=== PATIENT | male | born 1960 | race Caucasian/White ===

== ENCOUNTER 2016-12-12 21:10 | Inpatient (IN) | payer OTHER ==
[2016-12-12] VITALS (14 sets, daily range): O2SAT 91–96
[~2016-12-12] VITALS: Ht 180.3 cm; Wt 90.7 kg
[~2016-12-12 21:10] MED LIST: AMOXICILLIN 8751 TAB PO; NORCO 325 MG-51 TAB PO
[2016-12-12 21:32] LABS: BASO # 0.1 (0.0-0.2); BASO % 0.9 % (0.0-2.0); EOS # 0.4 (0.0-0.7); EOS % 3.3 % (0-4.0); GRAN # 6.3 (1.4-6.5); GRAN % 48.3 % (42.2-75.2); HEMATOCRIT 44.3 % (42.0-52.0); HEMOGLOBIN 14.6 g/dl (13.5-18.0); LYMPH % 37.8 % (20.0-51.0); MEAN CELL VOLUME 85 fl (80.0-100.0); MEAN CORPUSCULAR HEMOGLOBIN 28 pg (27.0-31.0); MEAN CORPUSCULAR HGB CONC 33 g/dl (33.0-37.0); MEAN PLATELET VOLUME 9.5 fl (7.4-10.4); MONO # 1.2 (0.1-0.6); MONO % 9.4 % (1.7-9.3); PLATELET COUNT 425 K/mm3 (130-400); RED BLOOD COUNT 5.19 M/mm3 (4.20-5.60); REDCELL DISTRIBUTION WIDTH-CV 12.1 % (11.5-14.5); WHITE BLOOD COUNT 13.1 K/mm3 (4.8-10.8)
[2016-12-12 21:36] LABS: PROTHROMBIN TIME 11.1 SECONDS (9.7-12.8)
[2016-12-12 22:05] LABS: ADJUSTED CALCIUM 9.2 mg/dL (8.4-10.2); ALANINE AMINOTRANSFERASE 40 U/L (21-72); ALBUMIN 4.3 gm/dL (3.5-5.0); ALKALINE PHOSPHATASE 61 U/L (50-136); ANION GAP 14 mmol/L (7-16); BILIRUBIN,TOTAL 0.6 mg/dL (0.0-1.0); BLOOD UREA NITROGEN 18 mg/dL (9-20); CALCIUM 9.4 mg/dL (8.4-10.2); CARBON DIOXIDE 24 mmol/L (22-30); CHLORIDE 103 mmol/L (98-107); CREATININE, serum 0.95 mg/dL (0.66-1.25); GLUCOSE 119 mg/dL (74-106); POTASSIUM 3.3 mmol/L (3.4-5.0); SODIUM 142 mmol/L (137-145); TOTAL PROTEIN 7.7 gm/dL (6.4-8.2)
[2016-12-12 22:35] LABS: TROPONIN-I < 0.012 ng/mL (0.000-0.034)
[2016-12-13] VITALS (603 sets, daily range): BP systolic 115–131; BP diastolic 70–78; PULSE 88–109; TEMP 97.2–99.3; O2SAT 82–97
[2016-12-13 09:26] LABS: BASO # 0.1 (0.0-0.2); BASO % 0.4 % (0.0-2.0); EOS % 0.1 % (0-4.0); GRAN # 13.8 (1.4-6.5); GRAN % 85.4 % (42.2-75.2); HEMATOCRIT 41.6 % (42.0-52.0); HEMOGLOBIN 13.5 g/dl (13.5-18.0); LYMPH # 1.2 (1.2-3.4); LYMPH % 7.2 % (20.0-51.0); MEAN CELL VOLUME 87 fl (80.0-100.0); MEAN CORPUSCULAR HEMOGLOBIN 28 pg (27.0-31.0); MEAN CORPUSCULAR HGB CONC 33 g/dl (33.0-37.0); MEAN PLATELET VOLUME 9.9 fl (7.4-10.4); MONO % 6.4 % (1.7-9.3); RED BLOOD COUNT 4.77 M/mm3 (4.20-5.60); REDCELL DISTRIBUTION WIDTH-CV 12.6 % (11.5-14.5); WHITE BLOOD COUNT 16.1 K/mm3 (4.8-10.8)
[2016-12-13 09:29] LABS: PLATELET COUNT 293 K/mm3 (130-400)
[2016-12-13 09:53] LABS: CALCIUM 8.7 mg/dL (8.4-10.2); CREATININE, serum 0.88 mg/dL (0.66-1.25); POTASSIUM 4.2 mmol/L (3.4-5.0)
[2016-12-14 04:27] VITALS: BP 134/67; PULSE 98; TEMP 100.6
[2016-12-14 08:24] VITALS: BP 126/73; PULSE 99; TEMP 99.3
[2016-12-14 08:24] LABS: BASO # 0.1 (0.0-0.2); BASO % 0.5 % (0.0-2.0); EOS # 0.2 (0.0-0.7); EOS % 1.6 % (0-4.0); GRAN # 10.9 (1.4-6.5); GRAN % 80.5 % (42.2-75.2); HEMATOCRIT 40.2 % (42.0-52.0); LYMPH # 1.3 (1.2-3.4); LYMPH % 9.4 % (20.0-51.0); MEAN CELL VOLUME 87 fl (80.0-100.0); MEAN CORPUSCULAR HEMOGLOBIN 28 pg (27.0-31.0); MEAN CORPUSCULAR HGB CONC 32 g/dl (33.0-37.0); MONO % 7.6 % (1.7-9.3); PLATELET COUNT 292 K/mm3 (130-400); RED BLOOD COUNT 4.62 M/mm3 (4.20-5.60); REDCELL DISTRIBUTION WIDTH-CV 12.7 % (11.5-14.5); WHITE BLOOD COUNT 13.5 K/mm3 (4.8-10.8)
[2016-12-14 11:36] VITALS: BP 126/69; PULSE 101; TEMP 98.5
[2016-12-14 13:57] LABS: PH 5 (5-8); SQUAMOUS EPITHELIAL None Seen /hpf; URINE APPEARANCE Hazy; URINE BACTERIA Rare /hpf; URINE BILIRUBIN Negative (NEGATIVE); URINE BLOOD Negative (NEGATIVE); URINE COLOR Yellow; URINE GLUCOSE Negative (NEGATIVE); URINE KETONE Negative (NEGATIVE); URINE RBC 0-2 /hpf
[2016-12-14 17:26] VITALS: BP 121/69; PULSE 99; TEMP 97.8
[2016-12-14 17:46] LABS: INFLUENZA B NEGATIVE
[2016-12-14 20:01] VITALS: BP 141/65; PULSE 91; TEMP 98.7
[2016-12-14 22:48] VITALS: BP 125/70; PULSE 94; TEMP 99.6
[2016-12-15] VITALS (7 sets, daily range): BP systolic 120–149; BP diastolic 62–73; PULSE 85–105; TEMP 97.4–98.7
[2016-12-15 08:34] LABS: BASO # 0.1 (0.0-0.2); BASO % 0.6 % (0.0-2.0); EOS # 0.3 (0.0-0.7); EOS % 2.6 % (0-4.0); GRAN % 79.2 % (42.2-75.2); HEMATOCRIT 38.6 % (42.0-52.0); HEMOGLOBIN 12.8 g/dl (13.5-18.0); LYMPH # 1.1 (1.2-3.4); LYMPH % 8.8 % (20.0-51.0); MEAN CELL VOLUME 85 fl (80.0-100.0); MEAN CORPUSCULAR HEMOGLOBIN 28 pg (27.0-31.0); MEAN CORPUSCULAR HGB CONC 33 g/dl (33.0-37.0); MEAN PLATELET VOLUME 10.2 fl (7.4-10.4); MONO # 1.1 (0.1-0.6); MONO % 8.3 % (1.7-9.3); PLATELET COUNT 294 K/mm3 (130-400); RED BLOOD COUNT 4.52 M/mm3 (4.20-5.60); REDCELL DISTRIBUTION WIDTH-CV 12.8 % (11.5-14.5); WHITE BLOOD COUNT 12.6 K/mm3 (4.8-10.8)
[2016-12-15 08:51] LABS: CALCIUM 8.5 mg/dL (8.4-10.2); CREATININE, serum 0.78 mg/dL (0.66-1.25); POTASSIUM 3.7 mmol/L (3.4-5.0)
[2016-12-15] MEDS ORDERED: PROAIR HFA0.09 MG/AC IH (11:54)
[2016-12-15] MEDS ORDERED: NORCO 325 MG-51 TAB PO (11:55)
[2016-12-15] MEDS ORDERED: PREDNISONE20 MG PO (11:55)
[2016-12-15 15:50] LABS: INR 1.3 (0.8-3.0); PROTHROMBIN TIME 14.9 SECONDS (9.7-12.8)
[2016-12-15 16:50] LABS: GLUCOSE,PLEURAL FLUID 125 mg/dL
[2016-12-15 16:59] LABS: PLEURAL FLUID - PMN 65.2 % (0-25)
[2016-12-15 19:29] LABS: PLEURAL FLUID RIGHT SIDE; PLEURAL FLUID APPEARANCE HAZY; PLEURAL FLUID COLOR AMBER
[2016-12-16 04:38] VITALS: BP 118/69; PULSE 82; TEMP 99.9
[2016-12-16 07:39] VITALS: BP 123/71; PULSE 92; TEMP 99.7
[2016-12-16 11:05] VITALS: BP 130/72; PULSE 85; TEMP 98.5
[2016-12-16] MEDS ORDERED: CLEOCIN HCL300 MG PO (12:22)
== END 2016-12-16 15:00 | disposition home or self-care (01) | DRG 194 ==
LOC: COL.ER 21:10 → ICU 22:18 → MEDICAL 12-13 17:39
PROVIDERS: Family Medicine; Internal Medicine; Nurse Practitioner Family
PROC: 0W993ZZ Drainage of Right Pleural Cavity, Percutaneous Approach (ICD-10-PCS; principal; 2016-12-15)
DX: J18.9 Pneumonia, unspecified organism (principal); J91.8 Pleural effusion in other conditions classified elsewhere; M94.0 Chondrocostal junction syndrome [Tietze]; I10 Essential (primary) hypertension; Z87.891 Personal history of nicotine dependence
CPT/HCPCS: 99232-AI; 99239; A9284; J0456; J0696; J1170; J1650; J7030; J7050; J7512; Q9967

== ENCOUNTER 2016-12-24 10:45 | Emergency (ER) | payer OTHER ==
[~2016-12-24] VITALS: Ht 182.9 cm; Wt 89.5 kg
[~2016-12-24 10:45] MED LIST changes: +CLEOCIN HCL300 MG PO; +PREDNISONE20 MG PO; +PROAIR HFA0.09 MG/AC IH
[2016-12-24 11:35] LABS: BASO # 0.1 (0.0-0.2); BASO % 0.7 % (0.0-2.0); EOS # 0.1 (0.0-0.7); EOS % 1.1 % (0-4.0); GRAN # 6.4 (1.4-6.5); GRAN % 79.6 % (42.2-75.2); HEMATOCRIT 40.6 % (42.0-52.0); HEMOGLOBIN 13.1 g/dl (13.5-18.0); LYMPH # 0.5 (1.2-3.4); LYMPH % 6.6 % (20.0-51.0); MEAN CELL VOLUME 86 fl (80.0-100.0); MEAN CORPUSCULAR HEMOGLOBIN 28 pg (27.0-31.0); MEAN CORPUSCULAR HGB CONC 32 g/dl (33.0-37.0); MEAN PLATELET VOLUME 9.1 fl (7.4-10.4); MONO # 0.9 (0.1-0.6); MONO % 11.6 % (1.7-9.3); PLATELET COUNT 423 K/mm3 (130-400); RED BLOOD COUNT 4.71 M/mm3 (4.20-5.60); REDCELL DISTRIBUTION WIDTH-CV 12.3 % (11.5-14.5)
[2016-12-24 11:51] LABS: INFLUENZA B NEGATIVE
[2016-12-24 12:42] LABS: ADJUSTED CALCIUM 9.4 mg/dL (8.4-10.2); ALBUMIN 3.8 gm/dL (3.5-5.0); BILIRUBIN,TOTAL 0.7 mg/dL (0.0-1.0); CALCIUM 9.2 mg/dL (8.4-10.2); CREATININE, serum 0.96 mg/dL (0.66-1.25); POTASSIUM 4.2 mmol/L (3.4-5.0); TOTAL PROTEIN 7.8 gm/dL (6.4-8.2)
[2016-12-24] MEDS ORDERED: PROAIR HFA0.09 MG/AC IH (12:59)
[2016-12-24 13:22] VITALS: BP 108/57; PULSE 85; TEMP 98.8
== END 2016-12-24 13:22 | disposition home or self-care (01) ==
LOC: COL.ER 10:45
PROVIDERS: Emergency Medicine; Physician Assistant
DX: J18.9 Pneumonia, unspecified organism (principal); J91.8 Pleural effusion in other conditions classified elsewhere; T48.6X6A Underdosing of antiasthmatics, initial encounter; Z91.138 Patient's unintentional underdosing of medication regimen for other reason; Y92.009 Unspecified place in unspecified non-institutional (private) residence as the place of occurrence of the external cause; Z87.891 Personal history of nicotine dependence
CPT/HCPCS: J7040

== ENCOUNTER 2019-07-02 16:49 | Emergency (ER) | payer MEDICAID ==
[~2019-07-02] VITALS: Ht 180.3 cm; Wt 100.0 kg
[2019-07-02 16:56] VITALS: TEMP 98.6
[2019-07-02 18:50] LABS: BASO # 0.1 (0.0-0.2); BASO % 0.7 % (0.0-2.0); EOS # 0.2 (0.0-0.7); EOS % 1.8 % (0-4.0); GRAN # 7.8 (1.4-6.5); GRAN % 75.6 % (42.2-75.2); HEMATOCRIT 42.3 % (42.0-52.0); HEMOGLOBIN 14.2 g/dl (13.5-18.0); LYMPH # 1.5 (1.2-3.4); LYMPH % 14.5 % (20.0-51.0); MEAN CELL VOLUME 86 fl (80.0-100.0); MEAN CORPUSCULAR HEMOGLOBIN 29 pg (27.0-31.0); MEAN CORPUSCULAR HGB CONC 34 g/dl (33.0-37.0); MEAN PLATELET VOLUME 9.9 fl (7.4-10.4); MONO # 0.7 (0.1-0.6); MONO % 7.1 % (1.7-9.3); PLATELET COUNT 247 K/mm3 (130-400); RED BLOOD COUNT 4.91 M/mm3 (4.20-5.60); REDCELL DISTRIBUTION WIDTH-CV 12.2 % (11.5-14.5)
[2019-07-02 18:59] LABS: CALCIUM 9.1 mg/dL (8.4-10.2); CREATININE, serum 0.85 (0.66-1.25)
[2019-07-02] MEDS ORDERED: NORCO 325 MG-51 TAB PO (20:25)
[2019-07-02] MEDS ORDERED: CLEOCIN HCL300 MG PO (20:25)
[2019-07-02 20:45] VITALS: BP 140/70; PULSE 75
== END 2019-07-02 21:20 | disposition home or self-care (01) ==
LOC: COL.ER 16:49
PROVIDERS: Physician Assistant
DX: L02.01 Cutaneous abscess of face (principal); Z87.891 Personal history of nicotine dependence
CPT/HCPCS: Q9967

== ENCOUNTER 2019-09-21 10:48 | Day surgery (SDC) | payer MEDICAID ==
[~2019-09-21] VITALS: Ht 182.9 cm; Wt 93.2 kg
[2019-09-21 11:08] VITALS: BP 135/79; PULSE 81; TEMP 98.1
[2019-09-21 12:50] VITALS: BP 115/72; PULSE 63; TEMP 98.4
--- NOTE | 2019-09-21 12:50 | NUR ---
to bay 2 via cart from endo room, pt walked to chair, in room, call light in reach, has juice and muffin, no c/o
[2019-09-21 13:05] VITALS: BP 121/77; PULSE 64
--- NOTE | 2019-09-21 13:10 | NUR ---
Dr kumar see pt and . iv d'cd intact.
[2019-09-21 13:20] VITALS: BP 107/74; PULSE 61
--- NOTE | 2019-09-21 13:20 | NUR ---
reviewed discharge papers with pt and . Instructed on activity, results of biopsy and precautioins with verbal understanding. pt up in room dressed, discharged via w/c to car with
== END 2019-09-21 13:25 | disposition home or self-care (01) ==
LOC: SDCO 10:48
DX: Z12.11 Encounter for screening for malignant neoplasm of colon (principal); D12.5 Benign neoplasm of sigmoid colon; K62.1 Rectal polyp; E78.00 Pure hypercholesterolemia, unspecified
CPT/HCPCS: J2250; J2405; J3010; J7030

== ENCOUNTER 2022-04-10 16:40 | Inpatient (IN) | payer OTHER ==
[~2022-04-10] VITALS: Ht 152.4 cm; Wt 95.0 kg
[2022-04-10] MEDS ORDERED: DOXYCYCLINE 10100 MG PO (17:06)
[2022-04-10] MEDS ORDERED: SINGULAIR 110 MG/TAB PO (17:07)
[2022-04-10] MEDS ORDERED: PROAIR HFA0.09 MG/AC IH (17:08)
[2022-04-10 17:33] LABS: BASO # 0.1 K/mm3 (0.0-0.2); BASO % 0.7 % (0.0-2.0); EOS # 0.4 K/mm3 (0.0-0.7); EOS % 3.6 % (0.0-4.0); GRAN # 8.7 K/mm3 (1.4-6.5); GRAN % 71.9 % (42.2-75.2); HEMATOCRIT 48.8 % (42.0-52.0); HEMOGLOBIN 16.5 g/dl (13.5-18.0); LYMPH % 16.2 % (20.0-51.0); MEAN CELL VOLUME 86 fl (80.0-100.0); MEAN CORPUSCULAR HEMOGLOBIN 29 pg (27-31); MEAN CORPUSCULAR HGB CONC 34 g/dl (33.0-37.0); MEAN PLATELET VOLUME 9.9 fl (7.4-10.4); MONO # 0.9 K/mm3 (0.1-0.6); MONO % 7.2 % (1.7-9.3); PLATELET COUNT 312 K/mm3 (130-400); RED BLOOD COUNT 5.67 M/mm3 (4.20-5.60); REDCELL DISTRIBUTION WIDTH-CV 12.6 % (11.5-14.5)
[2022-04-10 17:50] LABS: ALANINE AMINOTRANSFERASE 31 U/L (0-55); ALBUMIN 4.2 gm/dL (3.4-4.8); ALKALINE PHOSPHATASE 71 U/L (40-150); ANION GAP 14 mmol/L (7-16); AST,SGOT 21 U/L (5-34); BILIRUBIN,TOTAL 0.7 mg/dL (0.2-1.2); BLOOD UREA NITROGEN 12 mg/dL (8-26); CALCIUM 9.6 mg/dL (8.4-10.2); CARBON DIOXIDE 22 mmol/L (23-31); CHLORIDE 105 mmol/L (98-107); CREATININE, serum 0.96 mg/dL (0.72-1.25); GLUCOSE 90 mg/dL (70-99); POTASSIUM 4.3 mmol/L (3.5-4.5); SODIUM 141 mmol/L (136-145)
[2022-04-10 17:57] LABS: TROPONIN-I < 0.010 ng/mL (0.00-0.033)
[2022-04-10 21:09] VITALS: BP 126/60; PULSE 104; TEMP 98
--- NOTE | 2022-04-10 21:10 | NUR ---
PT ADMITTED TO ROOM 342 FROM ER PER W/C. A&O X4. NO RESP DISTRESS AT THIS TIME. TELE IN PLACE. NOTIFIED DR STEINER OF CONSULT. CALL LIGHT IN REACH. EATING A SANDWICH TRAY AT THIS TIME.
[2022-04-10 23:33] VITALS: BP 134/69; PULSE 99; TEMP 97.6
--- NOTE | 2022-04-11 01:59 | NUR ---
PT REPORTS COUGHING QUITE A BIT. NO RESP DISTRESS. NOTIFIED RT FOR RT TX.
--- NOTE | 2022-04-11 02:28 | NUR ---
PT SLEEPING NOW. NO RESP DISTRESS.
[2022-04-11 03:28] VITALS: BP 128/51; PULSE 93; TEMP 97.7
--- NOTE | 2022-04-11 04:00 | NUR ---
PT CONTINUES SLEEPING.
[2022-04-11 07:46] VITALS: BP 143/67; PULSE 114; TEMP 97.7
[2022-04-11 11:52] VITALS: BP 143/63; PULSE 110; TEMP 97.9
--- NOTE | 2022-04-11 13:14 | NUR ---
Pt lives at home with his ,Chetna @ [phone]. Pt is independent on all ADLS and does not use any DME. PT PCP is Brian Richards and gets medications from [facility] and has no trouble obtaining medications. Pt not interested in DPOA-HC paperwork. No other needs stated at this time. SW to await further recommendations. DC: Home.
[2022-04-11 15:20] VITALS: BP 135/60; PULSE 116; TEMP 98.8
--- NOTE | 2022-04-11 19:48 | NUR ---
ASSESSMENT COMPLETE. PT. SITTING IN CHAIR TALKING ON THE PHONE. A&O. ANTIBIOTICS INFUSING TO RIGHT FOREARM. NO COMPLAINTS OF PAIN. PT. IS NOT WEARING OXYGEN. CALL LIGHT IN REACH. NO FURHTER NEEDS AT THIS TIME.
[2022-04-11 20:21] VITALS: BP 137/63; PULSE 117; TEMP 97.7
--- NOTE | 2022-04-12 00:22 | NUR ---
AID FOUND PT. O2 TO BE AT 87% WITHOUT OXYGEN. O2 WAS APPLIED AT 3L/MIN AND HIS STAT INCREASED TO 91%
[2022-04-12 00:51] VITALS: BP 117/63; PULSE 107; TEMP 97.8
[2022-04-12 04:23] VITALS: BP 125/69; PULSE 100; TEMP 97.7
[2022-04-12 06:33] LABS: HEMATOCRIT 40.5 % (42.0-52.0); MEAN CELL VOLUME 88 fl (80.0-100.0); MEAN CORPUSCULAR HEMOGLOBIN 29 pg (27-31); MEAN CORPUSCULAR HGB CONC 33 g/dl (33.0-37.0); MEAN PLATELET VOLUME 10.7 fl (7.4-10.4); PLATELET COUNT 270 K/mm3 (130-400); RED BLOOD COUNT 4.58 M/mm3 (4.20-5.60); REDCELL DISTRIBUTION WIDTH-CV 13.1 % (11.5-14.5)
[2022-04-12 06:50] LABS: CALCIUM 9.5 mg/dL (8.4-10.2); CREATININE, serum 0.93 mg/dL (0.72-1.25); POTASSIUM 4.3 mmol/L (3.5-4.5)
[2022-04-12 06:55] LABS: HEMOGLOBIN 13.4 g/dl (13.5-18.0)
[2022-04-12 08:00] VITALS: BP 136/72; PULSE 109; TEMP 97.6
[2022-04-12 09:00] LABS: BAND 4 % (0-10); LYMPHOCYTE 5 % (20.0-51.0); NEUTROPHILS 87 % (42.0-75.2)
[2022-04-12 09:06] LABS: PLATELET ESTIMATE NORMAL (NORMAL)
--- NOTE | 2022-04-12 10:07 | NUR ---
Initial visit; Patient thanked [employer] Microbiology Supervisor for looking in on him and offering God's blessings.
[2022-04-12] MEDS ORDERED: PREDNISONE20 MG PO (11:17)
[2022-04-12] MEDS ORDERED: DULERA1 ARO IH (11:19)
[2022-04-12 11:56] VITALS: BP 131/77; PULSE 100; TEMP 97.8
--- NOTE | 2022-04-12 12:39 | NUR ---
DISCHARGE INSTRUCTIONS PROVIDED. FOLLOW UP APPOINTMENTS DISCUSSED. IV DC'D. PATIENT DENIES ANY QUESTIONS OR CONCERNS. PATIENT ESCORTED OUT WITH AIDE AND .
--- NOTE | 2022-04-12 12:39 | NUR ---
PATIENT ALERT AND ORIENTED X3. AMBULATING HALLS. PATIENT DENIES PAIN. ASSESSMENT PERFORMED. VSS. AM MEDS ADMINISTERED. CALL LIGHT WITHIN REACH.
== END 2022-04-12 12:35 | disposition home or self-care (01) | DRG 189 ==
LOC: COL.ER 16:40 → SURG 19:10
PROVIDERS: Physician Assistant; ADMIT Student in an Organized Health Care Education/Training Program
PROC: 5A0935A Assistance with Respiratory Ventilation, Less than 24 Consecutive Hours, High Flow/Velocity Cannula (ICD-10-PCS; principal; 2022-04-11)
DX: J96.01 Acute respiratory failure with hypoxia (principal); J21.9 Acute bronchiolitis, unspecified; J45.901 Unspecified asthma with (acute) exacerbation; Z20.822 Contact with and (suspected) exposure to COVID-19; F17.210 Nicotine dependence, cigarettes, uncomplicated; J32.8 Other chronic sinusitis; D18.09 Hemangioma of other sites; R03.0 Elevated blood-pressure reading, without diagnosis of hypertension; R05.3 Chronic cough; Z87.01 Personal history of pneumonia (recurrent); Z90.49 Acquired absence of other specified parts of digestive tract; Z91.048 Other nonmedicinal substance allergy status; Z72.89 Other problems related to lifestyle
CPT/HCPCS: 99223-AI; 99233-AI; J0456; J1100; J1650; J2920; J7030; J7050

== ENCOUNTER → 2022-06-15 | Outpatient (CLI) | payer OTHER ==
[~2022-06-15] MED LIST changes: +DOXYCYCLINE 10100 MG PO; +DULERA1 ARO IH; +SINGULAIR 110 MG/TAB PO
== END ==
LOC: COL.PUL 12:29
DX: R06.02 Shortness of breath (principal)
CPT/HCPCS: J7674

== ENCOUNTER → 2022-07-20 | Outpatient (CLI) | payer OTHER | LOC: COL.RAD 07:36 | DX: K76.9 Liver disease, unspecified (principal); Z90.49 Acquired absence of other specified parts of digestive tract | CPT/HCPCS: Q9967 ==